=== PATIENT | female | born 1940 | race African-American/Black ===

== ENCOUNTER 2019-01-08 22:45 | Emergency (ER) | payer SELFPAY ==
[~2019-01-08] VITALS: Ht 167.6 cm; Wt 57.0 kg
[2019-01-08 23:32] VITALS: BP 142/74
== END 2019-01-08 23:35 | disposition home or self-care (01) ==
LOC: ER 22:46
DX: G47.00 Insomnia, unspecified (principal); F41.9 Anxiety disorder, unspecified; E11.9 Type 2 diabetes mellitus without complications; I10 Essential (primary) hypertension; K21.9 Gastro-esophageal reflux disease without esophagitis; M19.90 Unspecified osteoarthritis, unspecified site; Z93.3 Colostomy status
CPT/HCPCS: 99282; 99283